=== PATIENT | male | born 1940 | race Caucasian/White ===

== ENCOUNTER 2017-05-06 07:39 | Day surgery (SDC) | payer MEDICARE ==
[~2017-05-06] VITALS: Ht 175.3 cm; Wt 65.8 kg
[~2017-05-06 07:39] MED LIST: ATEN100T PO; DOXA2TAB52 PO; HYDR25TA4 PO; LOSA100T29 PO; Lactated Ringer's 1,000 ML IV ONE; MULT-1018 PO
[2017-05-06] MEDS ORDERED: Propofol 10,000 mCg/mL 20 mL Inj ONE (07:40)
[2017-05-06] MEDS ORDERED: fentaNYL-PF 50 mCg/mL 2 mL Inj ONE (07:40)
[2017-05-06] MEDS ORDERED: FLUT9.9S NS (08:16)
[2017-05-06] MEDS ORDERED: WARF5TAB PO (08:16)
[2017-05-06] MEDS ORDERED: WARF2TAB PO (08:16)
[2017-05-06 08:24] VITALS: BP 120/69; PULSE 61; RESP 15; O2SAT 96
[2017-05-06 09:39] VITALS: BP 103/61; PULSE 54; RESP 14; O2SAT 96
[2017-05-06 09:48] VITALS: BP 112/66; PULSE 55; RESP 14; O2SAT 97
[2017-05-06 09:49] VITALS: BP 112/67; PULSE 54; RESP 14; O2SAT 96
--- NOTE | 2017-05-06 09:51 | PCM.HPANE ---
Patient Data Date of Service: May 06, 2017 (0855) Surgeon Admitting Provider: Attending Provider:Daniel Gleason MD Primary Care Physician:Leeroy Jaimes MD Other Provider:Cale Toussaint Anesthesia Reason for Visit Adenomatous Polyp Of Colon Ht/WT & BMI Height (Feet): 5 Height (Inches): 9 Weight (Kilograms): 65.77 Body Mass Index 21.00 Allergies Coded Allergies: No Known Allergies (Verified Allergy, Unknown, 05/02/17) Past Anesthesia History Anesthesia History: Denies:: Abnormal Airway, Anesthesia Reactions, Difficult Intubation, Fam Anesthesia Reaction, Fam Malignant Hypertherm, Malignant Hyperthermia Diabetes History Hx Diabetes?: No MRSA MRSA: No Medications Blood Thinner: Coumadin Last Dose Blood Thinner: May 01, 2017 Home Meds Incl Beta Nick: Yes Date Beta Nick Taken: May 06, 2017 Time Beta Nick Taken: 0600 Reported Medications Warfarin Sodium (Coumadin)5 Mg Tablet5 Mg PO WEEKLY 30 Days Ref 0 05/06/17 Warfarin Sodium (Coumadin)2 Mg Tablet2 Mg PO WEEKLY 30 Days Ref 0 05/06/17 Fluticasone Propionate (Flonase Allergy Relief)50 Mcg/Actuation [place].susp9.9 Ml NS 05/06/17 Multivitamin (Multi Vitamin Daily)1 Each Tablet1 Each PO DAILY 30 Days Ref 0 05/02/17 Losartan Potassium 100 Mg [id number] Mg PO 05/02/17 Hydrochlorothiazide 25 Mg Oqgbmq61 Mg PO DAILY 30 Days Ref 0 05/02/17 Doxazosin (Cardura)2 Mg Tablet8 Mg PO HS Ref 0 05/02/17 Atenolol 100 Mg [id number] Mg PO DAILY Ref 0 05/02/17 Discontinued Reported Medications Warfarin Sodium (Jantoven)1 Mg Tablet1 Mg PO DAILY 05/02/17 Mu-Vits-Min Th/Lycopene/Lutein (Centrum Silver Tablet)1 Each Tablet1 Each PO 03/10/13 Hydrochlorothiazide-Expunged, Do Not Renew! 25 Mg [id number] Mg PO DAILY 03/10/13 Doxazosin-Expunged Drug, Do Not Renew! 2 Mg Tablet4 Mg PO 1-2XD 2-8 MG 03/10/13 Atenolol-Expunged Drug, Do Not Renew! 25 Mg [id number] Mg PO 03/10/13 Losartan-Expunged Drug, Do Not Renew! 100 Mg Wqgewf214 Mg PO DAILY 03/10/13 History History of ENT Problems?: No HEENT History: Denies:: Abnormal Airway Difficult Intubation Dysphagia Hearing Problem Denture Type: None Teeth Condition: Within Normal Limits Missing Teeth Hx of Heart Problems?: Yes Cardiovascular History: Positive for:: Atrial Fibrillation Hypertension Denies:: AICD Chest Pain Pacemaker Valvular Heart Disease Hx of Respiratory Problem?: No Respiratory History: Positive for:: Use of C-PAP Machine Denies:: Asthma COPD Chest Surgery Cough Dyspnea Emphysema Hemoptysis Oxygen Administration Pneumonia Pulmonary Embolism Tuberculosis Use of Inhalers / NEBS Hx Neurologic Problems?: No Neurological History: Denies:: CVA Hx of GI Problems?: Yes Hx of Problems?: No Hx Musculoskeletal Problems?: No Musculoskeletal History: Denies:: Joint Replacement Psycho Social History: Denies:: Anxiety Hx Depression Hx Surgeries?: Yes (colon resection, hernia) Hx Any Other Health Problems?: Yes Hx Diabetes: No Hx Alcohol Use: No Stop/Bang Treated for Sleep Apnea?: Yes Do You Have a CPAP Machine?: Yes Risk Assessment Category Category 1A: Patient has history of documented sleep apnea, and HAS NOT received any narcotic, sedative or anesthesia administration during this stay. Category 1B: Patient has history of documented sleep apnea, and HAS received any narcotic , sedative or anesthesia administration during this stay Category 2: Patient has SUSPECTED Obstructive Sleep Apnea, and HAS received any narcotic , sedative or anesthesia administration during this stay. Category 3: Patient has SUSPECTED Obstructive Sleep Apnea and HAS NOT received narcotic, sedative or anesthesia administration during this stay. Category 4: Outpatient in Procedural Areas with known sleep apnea or who screen positive for High Risk via the STOP/BANG questionnaire. Exam Exam Vital Signs Vital Signs Date Time Temp Pulse Resp B/P Pulse Ox O2 Delivery O2 Flow Rate FiO2 05/06/17 08:24 61 15 120/69 96 Room Air General Appearance: Alert, Oriented X3, Cooperative, No Acute Distress HEENT/AIRWAY: MP 2 Lungs: Clear to Auscultation Heart: Exam Unremarkable Meds/Labs/Diagnostics Admission Meds Current Medications Lactated Ringer's (Lr) 1,000 ml @ 10 mls/hr Q24H ONCE IV Last administered on 05/06/17t 09:31; Start 05/06/17 at 06:00; Stop 05/07/17 at 05:59 Plan Impression Patient chart reviewed, patient interviewed and anesthestic plan with risks, benefits, and alternatives discussed, and informed consent obtained. ASA Physical Status: ASA2 Mod Systemic Disease Anesthetic Plan: MAC Bene/Risks/Altern/Consents: Yes HP Complete Prior to Induction: Yes Cleve Garcia MD May 06, 2017 09:51
[2017-05-06 09:59] VITALS: BP 108/66; PULSE 50; RESP 14; O2SAT 95
--- NOTE | 2017-05-06 10:14 | ENDO ---
[address] [address] ENDOSCOPY PROCEDURE PATIENT: KAYLAH PATTERSON : 1940 MR#: [id number] ADMIT: 05/06/2017 JOB ID: [id number] PRIMARY PROVIDER: Leeroy Jaimes MD PROCEDURE: Colonoscopy with hot snare polypectomy. INDICATIONS: A 77-year-old male with a positive FIT test and a personal history of colon polyps, even requiring right hemicolectomy. EQUIPMENT: [id number]. SEDATION: Monitored anesthesia as provided by Dr. Cleve Garcia. COMPLICATIONS: None identified. BOWEL PREPARATION: Fair, adequate exam. PROCEDURE INFORMATION: After the risks and benefits were explained, written and verbal informed consent was obtained. The patient was brought into the endoscopy suite and placed into the left lateral decubitus position. Sedation was achieved using the above-stated medications with the addition of oxygen via nasal cannula. A digital rectal examination was accomplished. No significant pathology appreciated apart from some mild internal hemorrhoids. The scope was introduced into the rectum and advanced to the right hemicolectomy anastomosis. The scope was slowly withdrawn to carefully examine the mucosa for any defects or lesions. Multiple direct views were made through the dentate line for exclusion of pathology. The colon was decompressed, the scope removed from the patient who tolerated the procedure well. FINDINGS: There was some superficial vascularity within the anorectum overlying the hemorrhoidal cushions. I did not see any evidence of proctitis. No colitis. No significant mass lesions throughout. There was some mild diverticulosis in the sigmoid. A couple of folds distal to the right hemicolectomy anastomosis. There was a sessile, perhaps 12-[address] of hot snare. ENDOSCOPIC DIAGNOSES: 1. Colon polyp. 2. Diverticulosis. 3. Hemorrhoids. RECOMMENDATIONS: 1. Await histopathology. 2. Repeat colonoscopy in three years.
--- NOTE | 2017-05-07 17:28 | PATH ---
SURGICAL PATHOLOGY Attending Physician:Tarsha Pham CASE STATUS: Signed Out PATIENT NAME: KAYLAH PATTERSON PID: [id number] : 1940 DATE COLLECTED:05/06/2017 17:19 SPECIMEN: Colon, Polyp CLINICAL HISTORY: 1). ASCENDING POLYP FINAL DIAGNOSIS: 1.ASCENDING COLON, POLYP, BIOPSY: MULTIPLE (APPROXIMATELY 6) FRAGMENTS OF TUBULAR ADENOMA; NEGATIVE FOR HIGH-GRADE DYSPLASIA. ICD10 K63.5 GROSS DESCRIPTION: The specimen is received in one formalin filled container labeled with the patient's name, sublabeled "ascending polyp" and consists of 3 portions of tissue which aggregate to 0.6 x 0.4 x 0.3 CM. The largest piece is bisected and all fragments are entirely submitted in one cassette. 05/06/2017DC MICRO DESCRIPTION: See diagnosis. ICD-9 CODES: CPT CODES: 1: 92042 Electronically Signed Out Elidia Arreguin MD [facility] Pathology [facility] [address], [place] [address] Technical component performed at [facility], [facility] [address], [place], [address]
== END 2017-05-06 23:59 | disposition home or self-care (01) ==
LOC: END 07:39
PROVIDERS: ATTEND Internal Medicine Gastroenterology
DX: Z12.11 Encounter for screening for malignant neoplasm of colon (principal); D12.5 Benign neoplasm of sigmoid colon; K57.30 Diverticulosis of large intestine without perforation or abscess without bleeding; K64.8 Other hemorrhoids; Z86.010 Personal history of colon polyps; Z80.0 Family history of malignant neoplasm of digestive organs; I48.91 Unspecified atrial fibrillation; I10 Essential (primary) hypertension; N40.0 Benign prostatic hyperplasia without lower urinary tract symptoms; G47.30 Sleep apnea, unspecified
CPT/HCPCS: 45380; J3010; J7120